=== PATIENT | female | born 1955 | race American Indian/Alaskan Native ===

== ENCOUNTER 2018-05-06 13:09 | Outpatient (CLI) | payer MEDICARE | END 2018-05-06 13:10 | disposition home or self-care (01) | LOC: C.MRIC 13:09 | DX: M54.5 Low back pain (principal) ==

== ENCOUNTER 2018-06-07 15:18 | Outpatient (CLI) | payer MEDICARE | END 2018-06-07 15:19 | disposition home or self-care (01) | LOC: C.MRIC 15:19 | DX: M75.122 Complete rotator cuff tear or rupture of left shoulder, not specified as traumatic (principal); S40.012A Contusion of left shoulder, initial encounter; M65.342 Trigger finger, left ring finger ==